=== PATIENT | male | born 1945 | race Caucasian/White ===

== ENCOUNTER 2018-06-16 20:27 | Inpatient (IN) | payer OTHER ==
--- NOTE | 2018-06-16 20:39 | EDPHY ---
H & P Time Seen by Provider: 06/16/18 20:39 HPI/ROS: CHIEF COMPLAINT: Syncope HISTORY OF PRESENT ILLNESS: 72-year-old man was walking his dog just before arrival on the last thing he remembers smelling the wood smoke from his neighbors fireplace. The next thing he remembers he was on the ground looking up at his neighbor who would found him passed out. Brought in by his family. Currently complains only of pain on the right side of his face and right knee. Denies headache or neck pain, weakness or numbness in extremities, chest pain or shortness of breath. He did have nausea and vomited a total of [address] here[address] He is completely amnestic to the event. REVIEW OF SYSTEMS: Eye: no change in vision or double vision ENT: no sore throat or dental injury Cardiac: No chest pain Pulmonary: no cough or SOB Abdomen: No abdominal pain or diarrhea Musculoskeletal: no back pain or neck pain, rate knee pain Skin: Multiple skin abrasions Neuro: no headache Constitutional: no fever : no urinary symptoms A comprehensive 10 point review of systems is otherwise negative aside from elements mentioned in the history of present illness. PAST MEDICAL HISTORY: Includes hypothyroid, anxiety, glaucoma, tonsillectomy. Tetanus up-to-date. Social history: No alcohol, here with his General Appearance: Alert and conversant, cooperative. Eyes: No scleral icterus. Pupils equal reactive extraocular motion intact. He has bruising around his right eyelid and a right subconjunctival hemorrhage. ENT, Mouth: Normal mucous membranes. No dental injury. Abrasions around the right orbit. Respiratory: Normal respiratory effort, breath sounds equal, lungs are clear to auscultation. Cardiovascular: Regular rate and rhythm; 1/6 murmur. Gastrointestinal: Abdomen is soft and non tender. Neurological: Alert, face symmetric, normal motor and sensory in extremities. Skin: Warm and dry, no rashes. Musculoskeletal: No cervical thoracic or lumbar spine tenderness to palpation. His right knee has very mild patellar tenderness without swelling but is stable with normal range of motion and no effusion. Psychiatric: Not agitated. Emergency Department course/MDM: Wound care, noncontrast head CT for head trauma and amnestic to the event. EKG and troponin and battery mechanic for syncope without prodrome. 2108: Right knee x-ray refused by the patient; understands this could result failure or delay in diagnosis of fracture or other internal injury. 2201: Results discussed, admit for syncope with abnormal EKG, age, no prodrome. Smoking Status: Former smoker Constitutional: Initial Vital Signs Temperature (C) 36.3 C 06/16/18 20:31 Heart Rate 76 06/16/18 20:31 Respiratory Rate 20 06/16/18 20:31 Blood Pressure 94/63 L 06/16/18 20:31 O2 Sat (%) 100 06/16/18 20:31 O2 Delivery Mode Room Air Allergies/Adverse Reactions: raw onions Allergy (Uncoded 06/16/18 20:37) Home Medications: Medication Instructions Recorded Levothyroxine 06/16/18 Lexapro 06/16/18 Medical Decision Making - Diagnostics EKG Interpretation: 12-lead EKG interpreted by me; official reading is in computer system. My interpretation is sinus rhythm with right bundle branch block and left posterior fascicular block. Imaging Results: Imaging Impressions Head CT 06/16/18 20:50 Impression: 1. Moderate atrophy. 2. No hemorrhage, mass effect, or definite acute peripheral infarct. 3. Mild nonspecific hypodensities in the white matter of bilateral cerebral hemispheres. Differential diagnosis includes microvascular ischemic disease, post-infectious/post-inflammatory sequela, atypical demyelinating disease, or migraine-related sequela. Small white matter lacunar infarcts may also have this appearance. 4. Soft tissue contusion over the right frontal bone If symptoms worsen, additional imaging may be necessary. Findings discussed with Rehan Arroyo M.D. at 21:46 hour, 06/16/2018. Imaging: Discussed imaging studies w/ rn call center Radiologist Differential Diagnosis: Differential diagnosis considered for syncope including but not limited to vasovagal syncope, arrhythmia, dehydration, and blood loss. Consult/Admit Bed Type: [facility] - Data Points Laboratory Results: Laboratory Results 06/16/18 20:49 06/16/18 20:49 06/16/18 06/16/18 06/16/18 20:53 20:49 20:49 WBC 7.17 10^3/uL 10^3/uL (3.80-9.50) RBC 4.56 10^6/uL 10^6/uL (4.40-6.38) Hgb 15.0 g/dL g/dL (13.7-17.5) Hct 43.6 % % (40.0-51.0) MCV 95.6 fL fL (81.5-99.8) MCH 32.9 pg pg (27.9-34.1) MCHC 34.4 g/dL g/dL (32.4-36.7) RDW 13.0 % % (11.5-15.2) Plt Count 104 10^3/uL L 10^3/uL (150-400) MPV 10.5 fL fL (8.7-11.7) Neut % (Auto) 47.4 % % (39.3-74.2) Lymph % (Auto) 42.0 % % (15.0-45.0) [place] % (Auto) 8.5 % % (4.5-13.0) Eos % (Auto) 1.4 % % (0.6-7.6) Baso % (Auto) 0.4 % % (0.3-1.7) Nucleat RBC Rel Count 0.0 % % (0.0-0.2) Absolute Neuts (auto) 3.40 10^3/uL 10^3/uL (1.70-6.50) Absolute Lymphs (auto) 3.01 10^3/uL H 10^3/uL (1.00-3.00) Absolute Monos (auto) 0.61 10^3/uL 10^3/uL (0.30-0.80) Absolute Eos (auto) 0.10 10^3/uL 10^3/uL (0.03-0.40) Absolute Basos (auto) 0.03 10^3/uL 10^3/uL (0.02-0.10) Absolute Nucleated RBC 0.00 10^3/uL 10^3/uL (0-0.01) Immature Gran % 0.3 % % (0.0-1.1) Immature Gran # 0.02 10^3/uL 10^3/uL (0.00-0.10) Sodium 135 mEq/L mEq/L (135-145) Potassium 3.5 mEq/L mEq/L (3.3-5.0) Chloride 103 mEq/L mEq/L (97-110) Carbon Dioxide 24 mEq/l mEq/l (22-31) Anion Gap 8 mEq/L mEq/L (6-14) BUN 25 mg/dL H mg/dL (7-23) Creatinine 1.4 mg/dL H mg/dL (0.7-1.3) Estimated GFR 50 Glucose 128 mg/dL H mg/dL (70-100) Calcium 9.3 mg/dL mg/dL (8.5-10.4) POC Troponin I 0.00 ng/mL ng/mL (0.00-0.08) Medications Given: Discontinued Medications Sodium Chloride (Ns) 1,000 mls @ 0 mls/hr IV EDNOW ONE; Wide Open PRN Reason: Protocol Stop: 06/16/18 21:30 Last Admin: 06/16/18 21:38 Dose: 1,000 mls Point of Care Test Results: Chemistry 06/16/18 20:53 POC Troponin I 0.00 ng/mL ng/mL (0.00-0.08) Departure - Departure Disposition: [facility] Inpatient Acute Clinical Impression: Subconjunctival hemorrhage of right eye Syncope Qualifiers: Syncope type: unspecified Qualified Code(s): R55 - Syncope and collapse Abrasion of face Qualifiers: Encounter type: initial encounter Qualified Code(s): S00.81XA - Abrasion of other part of head, initial encounter Contusion of right knee Qualifiers: Encounter type: initial encounter Qualified Code(s): S80.01XA - Contusion of right knee, initial encounter Condition: Good Referrals: Perez Britton MD [Primary Care Provider] - As per Instructions
--- NOTE | 2018-06-16 20:51 | CPEKG ---
Test Reason : OPEN Blood Pressure : / mmHG Vent. Rate : 070 BPM Atrial Rate : 070 BPM P-R Int : 189 ms QRS Dur : 126 ms QT Int : 440 ms P-R-T Axes : 070 108 049 degrees QTc Int : 475 ms Sinus rhythm RBBB and LPFB Probable inferior infarct, old Minimal ST elevation, anterior leads Confirmed by Rehan Arroyo ([id number]) on 06/16/2018 8:51:26 PM Referred By: Confirmed By:Rehan Arroyo
[2018-06-16 21:03] LABS: PLATELET COUNT 104 10^3/uL (150-400)
[2018-06-16] MEDS ORDERED: NS 1,000 ML IV ONE (21:29)
[2018-06-16] MEDS ORDERED: ONDANSETRON 4 MG/2 ML VIAL IVP PRN (22:08)
[2018-06-16] MEDS ORDERED: ONDANSETRON DISINTEGRATING 4 MG TAB PO PRN (22:08)
[2018-06-16] MEDS ORDERED: ACETAMINOPHEN 325 MG TAB PO PRN (22:08)
--- NOTE | 2018-06-17 00:48 | PDGENHP ---
History and Physical - Chief Complaint Syncope - History of Present Illness 72 yo M w/ hx of hypothyroid presents after syncope. He was in his usual state of health until this evening when he suffered a syncopal event while walking his dogs. He was walking without issue when he remembers an intense smell of smoke. Shortly after that he lost consciousness. His neighbor found him and helped him inside. At that point he was brought to the ED for evaluation. The patient denies prior history of syncope. He tells me his neighbors frequently burn wood so the smell was not unexpected but it was very intense. He denies chest pain prior to or after the event. At the time of my evaluation he denies complaints. He does have a laceration on his R forehead related to the fall. In the ED his CTH is unremarkable but ECG reveals bifascicular block. He is being admitted for observation and further work-up. Case discussed with ED physician Dr. Arroyo; records reviewed and summarized above. History Information - Allergies/Home Medication List Allergies/Adverse Reactions: raw onions Allergy (Uncoded 06/16/18 20:37) Home Medications: Levothyroxine 06/16/18 [Last Taken Unknown] Lexapro 06/16/18 [Last Taken Unknown] Tamsulosin HCl 06/16/18 [Last Taken Unknown] I have personally reviewed and updated: family history, medical history - Past Medical History Additional medical history: Hypothyroid - Surgical History Reports: no pertinent surgical hx - Family History Positive for: CAD Additional family history: Denies family hx of seizures - Social History Smoking Status: Former smoker Review of Systems Review of Systems: ROS: 10pt was reviewed & negative except for what was stated in HPI & below Physical Exam Physical Exam: Temp Pulse Resp BP Pulse Ox 36.6 C 66 14 118/59 L 96 06/17/18 00:05 06/17/18 00:20 06/17/18 00:05 06/17/18 00:20 06/17/18 00:05 Constitutional: no apparent distress, appears nourished Eyes: PERRL, other (Scleral hemorrhage R eye) Ears, Nose, Mouth, Throat: moist mucous membranes, no oral mucosal ulcers Cardiovascular: regular rate and rhythym, systolic murmur (2/6 systolic murmur upper sternal border) Respiratory: no respiratory distress, clear to auscultation Gastrointestinal: normoactive bowel sounds, soft, non-tender abdomen Skin: warm, other (R frontal laceration) Musculoskeletal: full muscle strength, no muscle tenderness Neurologic: AAOx3, CN II-XII Intact Psychiatric: interacting appropriately, not anxious Lab Data & Imaging Review 06/16/18 20:49 06/16/18 20:49 WBC 7.17 10^3/uL (3.80-9.50) 06/16/18 20:49 RBC 4.56 10^6/uL (4.40-6.38) 06/16/18 20:49 Hgb 15.0 g/dL (13.7-17.5) 06/16/18 20:49 Hct 43.6 % (40.0-51.0) 06/16/18 20:49 MCV 95.6 fL (81.5-99.8) 06/16/18 20:49 MCH 32.9 pg (27.9-34.1) 06/16/18 20:49 MCHC 34.4 g/dL (32.4-36.7) 06/16/18 20:49 RDW 13.0 % (11.5-15.2) 06/16/18 20:49 Plt Count 104 10^3/uL (150-400) L 06/16/18 20:49 MPV 10.5 fL (8.7-11.7) 06/16/18 20:49 Neut % (Auto) 47.4 % (39.3-74.2) 06/16/18 20:49 Lymph % (Auto) 42.0 % (15.0-45.0) 06/16/18 20:49 [place] % (Auto) 8.5 % (4.5-13.0) 06/16/18 20:49 Eos % (Auto) 1.4 % (0.6-7.6) 06/16/18 20:49 Baso % (Auto) 0.4 % (0.3-1.7) 06/16/18 20:49 Nucleat RBC Rel Count 0.0 % (0.0-0.2) 06/16/18 20:49 Absolute Neuts (auto) 3.40 10^3/uL (1.70-6.50) 06/16/18 20:49 Absolute Lymphs (auto) 3.01 10^3/uL (1.00-3.00) H 06/16/18 20:49 Absolute Monos (auto) 0.61 10^3/uL (0.30-0.80) 06/16/18 20:49 Absolute Eos (auto) 0.10 10^3/uL (0.03-0.40) 06/16/18 20:49 Absolute Basos (auto) 0.03 10^3/uL (0.02-0.10) 06/16/18 20:49 Absolute Nucleated RBC 0.00 10^3/uL (0-0.01) 06/16/18 20:49 Immature Gran % 0.3 % (0.0-1.1) 06/16/18 20:49 Immature Gran # 0.02 10^3/uL (0.00-0.10) 06/16/18 20:49 Sodium 135 mEq/L (135-145) 06/16/18 20:49 Potassium 3.5 mEq/L (3.3-5.0) 06/16/18 20:49 Chloride 103 mEq/L (97-110) 06/16/18 20:49 Carbon Dioxide 24 mEq/l (22-31) 06/16/18 20:49 Anion Gap 8 mEq/L (6-14) 06/16/18 20:49 BUN 25 mg/dL (7-23) H 06/16/18 20:49 Creatinine 1.4 mg/dL (0.7-1.3) H 06/16/18 20:49 Estimated GFR 50 06/16/18 20:49 Glucose 128 mg/dL (70-100) H 06/16/18 20:49 Calcium 9.3 mg/dL (8.5-10.4) 06/16/18 20:49 POC Troponin I 0.00 ng/mL (0.00-0.08) 06/16/18 20:53 Imaging Review: Imaging Impressions Head CT 06/16/18 20:50 Impression: 1. Moderate atrophy. 2. No hemorrhage, mass effect, or definite acute peripheral infarct. 3. Mild nonspecific hypodensities in the white matter of bilateral cerebral hemispheres. Differential diagnosis includes microvascular ischemic disease, post-infectious/post-inflammatory sequela, atypical demyelinating disease, or migraine-related sequela. Small white matter lacunar infarcts may also have this appearance. 4. Soft tissue contusion over the right frontal bone If symptoms worsen, additional imaging may be necessary. Findings discussed with Rehan Arroyo M.D. at 21:46 hour, 06/16/2018. Visualized and Interpreted EKG results: Yes EKG Interpretation: Positive for: normal sinsus rhythm, other (Bifascicular block) Assessment & Plan Assessment: 72 yo M w/ hx of hypothyroid presents after syncopal event. Plan: 1. Syncope - With intense smell of burning wood prior to syncopal event; this is possibly consistent with a seizure. However, bifascicular block on ECG ( personally reviewed/interpreted) and systolic murmur on exam merit cardiac evaluation as well. CTH in ED without acute abnormality. - Monitor on telemetry, trend cardiac enzymes - TTE ordered for cardiac evaluation - Monitor for seizure activity; may need MRI if recurrent. 2. CKD, stage III - Serum creatinine near baseline. - Avoid nephrotoxic agents - Monitor BMP 3. Thrombocytopenia - Unclear etiology, this appears chronic per review of labs. - Monitor CBC 4. Hypothyroid - Continue LTX, check TSH. Diet - Regular Code - Full Ppx - LMWH Dispo - Admit under observation status
[2018-06-17 05:58] LABS: PLATELET COUNT 94 10^3/uL (150-400)
[2018-06-17] MEDS: ENOXAPARIN 40 MG/0.4 ML SYR SC SCH (10:55)
--- NOTE | 2018-06-17 12:05 | ECHO ---
[email or web address] [address] [address] Main: [phone] Fax: Transthoracic Echocardiogram Name: KRZYSZTOF FAGAN MR#: [id number] Study Date: 06/17/2018 Study Time: 09:07 AM Date of : 1945 Age: 72 year(s) Height: ( ) Weight: ( ) BSA: Gender: Male Examination: Echo Indication: Cardiac: syncope, abnormal ecg Image Quality: Adequate Contrast: Requested by: Dion Tejeda BP: 112 mmHg/57 mmHg Heart Rate: Rhythm: Indication: Cardiac: syncope, abnormal ecg Procedure Staff Claims Specialist: Radha Newamn [facility] Reading Physician: Krzysztof Panda MD Requesting Provider: Conclusions: Normal size left ventricle. Moderate concentric LV hypertrophy. Normal global systolic LV function. EF is 64 %. No regional wall motion abnormality. Normal size right ventricle. The mitral valve is normal in appearance and function. Trivial mitral valve regurgitation. Cannot rule out bicuspid aortic valve with raphe. Severe aortic valve calcification is present. There is no aortic valve regurgitation. The tricuspid valve is normal in appearance and function. Trivial tricuspid valve regurgitation. Pulmonary artery pressure is not obtained due to inadequate TR jet. Trivial to mild pulmonic valve regurgitation. Normal size ascending aorta measuring 3.1 cm. Normal size and course of the IVC. No pericardial effusion. Measurements: Chambers Valvular Assessment AV/MV Valvular Assessment TV/PV Normal Normal Normal Name Value Range Name Value Range Name Value Range Ao Sherry (MM): 3.2 cm (2.2 cm-3.7 AV Vmax: 4.65 m/s (1 m/s-1.7 PV Vmax: 0.79 m/s (0.6 m/s-0.9 cm) m/s) m/s) IVSd (2D): 1.2 cm (0.6 cm-1.1 AV maxP mmHg ( - ) PV PGmax: 3 mmHg ( - ) cm) AV meanP mmHg ( - ) LVDd (2D): 3.9 cm (4.2 cm-5.9 RAYNA (VTI): 0.8 cm ( - ) cm) MV E Vmax: 1.01 m/s ( - ) Patient: KRZYSZTOF FAGAN Study Date: 06/17/2018 Page 1 of 2 09:07 AM LVDs (2D): 2.3 cm (2.1 cm-4 MV A Vmax: 1.20 m/s ( - ) cm) MV E/A: 0.84 ( - ) LVPWd (2D): 1.2 cm (0.6 cm-1 cm) LVOTd 2.1 cm 2.1 cm mm LVEF (BP): 64 % (>=55 %) RVDd(2D): 3.4 cm (1.9 cm-3.8 cmmm) Continued Measurements: Chambers Valvular Assessment AV/MV Name Value Name Value LADs Lon.0 cm MV DecTime: 232 m/s LA Area: 17.0 cm2 MV E' Septal: 0.07 m/s LA Volume: 52 ml MV E/E' Septal: 15.50 TAPSE: 2.8 cm MV E/E' Lateral: 11.40 RA Area: 14.7 cm2 Additional Vessels Name Value Ao Ascendin.1 cm Findings: Left Ventricle: Normal size left ventricle. Moderate concentric LV hypertrophy. Normal global systolic LV function. EF is 64 %. No regional wall motion abnormality. LV diastolic dysfunction is indeterminate. Right Ventricle: Normal size right ventricle. Normal RV function. Left Atrium: The left atrium is normal in size. LA index 27.8 ml/m2. Right Atrium: The right atrium is normal in size. Mitral Valve: The mitral valve is normal in appearance and function. Trivial mitral valve regurgitation. No mitral stenosis is present. Aortic Valve: Cannot rule out bicuspid aortic valve with raphe. Severe aortic valve calcification is present. There is no aortic valve regurgitation. Mean aortic valve gradient 51. Severe calcific aortic valve stenosis. NDSI = .22 Tricuspid Valve: The tricuspid valve is normal in appearance and function. Trivial tricuspid valve regurgitation. Pulmonary artery pressure is not obtained due to inadequate TR jet. Pulmonic Valve: The pulmonic valve is normal in appearance and function. Trivial to mild pulmonic valve regurgitation. Aorta: Normal size aortic root measuring 3.2 cm. Normal size ascending aorta measuring 3.1 cm. IVC: Normal size and course of the IVC. Pericardium: No pericardial effusion. (No Signature Object) Patient: KRZYSZTOF FAGAN Study Date: 06/17/2018 Page 2 of 2 09:07 AM [id number]
[2018-06-17] MEDS: LEVOTHYROXINE 50 MCG TAB PO SCH (13:18)
[2018-06-17] MEDS: CITALOPRAM 20 MG TAB PO SCH (13:19)
--- NOTE | 2018-06-17 13:31 | HOSPPROG ---
Hospitalist Progress Note Assessment/Plan: 72 yo M w syncope 2/ critical : CT surgery consult and preop eval. cath in AM syncope: this is almost certainly due to his elevated troponin: likely demand cath prior to surgery repeat now conduction system disease: change to inpatient dispo: change to inpatient Subjective: case d/w dr montoya. no sheri/tachy arrhythmias on tele (interp by me) Objective: Vital Signs Temp Pulse Resp BP Pulse Ox 37.7 C 56 L 16 103/58 L 96 06/17/18 12:00 06/17/18 12:00 06/17/18 12:00 06/17/18 12:00 06/17/18 05:33 Laboratory Results 06/17/18 05:29 06/17/18 05:29 06/16/18 06/17/18 06/18/18 05:59 05:59 05:59 Intake Total 1050 Balance 1050 - Physical Exam Constitutional: no apparent distress, appears nourished Eyes: PERRL, anicteric sclera Ears, Nose, Mouth, Throat: moist mucous membranes, hearing normal Cardiovascular: regular rate and rhythym, systolic murmur Respiratory: no respiratory distress, no rales or rhonchi Gastrointestinal: normoactive bowel sounds, soft, non-tender abdomen Genitourinary: No hebert in urethra Skin: warm, normal color Musculoskeletal: full muscle strength, no muscle tenderness Neurologic: AAOx3, sensation intact bilaterally Psychiatric: interacting appropriately ICD10 Worksheet Patient Problems: Problems Problem Status Onset Abrasion of face Acute Contusion of right knee Acute Subconjunctival hemorrhage of right eye Acute Syncope Acute
--- NOTE | 2018-06-17 13:43 | PDCARCONS ---
Cardiology Consult Reason for Consult: Syncope Chief Complaint: Patient passed out while walking dog Requesting Physician: hospitalist team History of Present Illness: Patient is a 72 y/o male with history of hypothyroidism, anxiety, but no HTN, HLP, CAD, or DM, who presented to [facility] ER after syncope while walking dog. Patient without a prodrome, and simply found himself on the ground. Uncertain duration for the event. No dizziness or lightheadedness preceded this event, but in review of outpatient notes, dizziness has been noted for several years. PCP office notes with dizziness noted. Manipulation of medical therapy for history of anxiety has been documented. No chest pains or pressure have been noted. No PND or orthopnea. Compliance (at present) with prescribed medical therapy has been good. Patient walks the dog several times per week and has not had any limitations. Patient also reports knowledge of "murmur" for sometime, but no formal work up on the symptom. Remainder of 12 point review of systems was unremarkable History Information - Allergies/Home Medication List Allergies/Adverse Reactions: raw onions Allergy (Uncoded 06/16/18 20:37) Home Medications: Citalopram [CeleXA] 20 mg PO DAILY 06/16/18 [Last Taken 06/16/18] Levothyroxine [Synthroid 50 mcg (*)] 50 mcg PO DAILY06 06/16/18 [Last Taken 09/29] Tamsulosin HCl [Flomax 0.4 MG (*)] 0.4 mg PO BID 06/16/18 [Last Taken 06/16/18 09:00] Timolol 0.5% [TIMOPTIC 0.5% (*)] 1 drops EACHEYE DAILY 06/17/18 [Last Taken 09/29] I have personally reviewed and updated: family history, medical history, social history, surgical history Past Medical History: - Surgical History Reports: hernia repair - Family History Positive for: non-pertinent - Social History Smoking Status: Former smoker Alcohol Use: Sober Drug Use: None Cardiac History - Cardiac History Cardiac Risk Factors: age > 65, male Timing/Duration: Minutes Severity: severe Severity Scale: 9 Activities at Onset: activity Associated Symptoms: syncope Physical Exam Physical Exam: Temp Pulse Resp BP Pulse Ox 37.7 C 56 L 16 103/58 L 96 06/17/18 12:00 06/17/18 12:00 12/04/18 12:00 06/17/18 12:00 06/17/18 05:33 Constitutional: no apparent distress, appears nourished, not in pain Eyes: PERRL, EOMI Ears, Nose, Mouth, Throat: moist mucous membranes, hearing normal, ears appear normal Cardiovascular: regular rate and rhythym, systolic murmur, pulses symmetric bilaterally, No JVD Peripheral Pulses: 2+: dorsalis-pedis (R), dorsalis-pedis (L) Respiratory: no respiratory distress, no rales or rhonchi, clear to auscultation Gastrointestinal: normoactive bowel sounds Skin: warm, normal color Musculoskeletal: full muscle strength, no muscle tenderness, normal joint ROM Neurologic: AAOx3, sensation intact bilaterally, CN II-XII Intact Psychiatric: interacting appropriately, not anxious, not encephalopathic Lab and Imaging 06/17/18 05:29 06/17/18 05:29 WBC 7.85 10^3/uL (3.80-9.50) 06/17/18 05:29 RBC 4.34 10^6/uL (4.40-6.38) L 06/17/18 05:29 Hgb 14.1 g/dL (13.7-17.5) 06/17/18 05:29 Hct 41.0 % (40.0-51.0) 06/17/18 05:29 MCV 94.5 fL (81.5-99.8) 06/17/18 05:29 MCH 32.5 pg (27.9-34.1) 06/17/18 05:29 MCHC 34.4 g/dL (32.4-36.7) 06/17/18 05:29 RDW 13.2 % (11.5-15.2) 06/17/18 05:29 Plt Count 94 10^3/uL (150-400) L 06/17/18 05:29 MPV 10.4 fL (8.7-11.7) 06/17/18 05:29 Neut % (Auto) 71.0 % (39.3-74.2) 06/17/18 05:29 Lymph % (Auto) 18.6 % (15.0-45.0) 06/17/18 05:29 [place] % (Auto) 9.4 % (4.5-13.0) 06/17/18 05:29 Eos % (Auto) 0.4 % (0.6-7.6) L 06/17/18 05:29 Baso % (Auto) 0.3 % (0.3-1.7) 06/17/18 05:29 Nucleat RBC Rel Count 0.0 % (0.0-0.2) 06/17/18 05:29 Absolute Neuts (auto) 5.58 10^3/uL (1.70-6.50) 06/17/18 05:29 Absolute Lymphs (auto) 1.46 10^3/uL (1.00-3.00) 06/17/18 05:29 Absolute Monos (auto) 0.74 10^3/uL (0.30-0.80) 06/17/18 05:29 Absolute Eos (auto) 0.03 10^3/uL (0.03-0.40) 06/17/18 05:29 Absolute Basos (auto) 0.02 10^3/uL (0.02-0.10) 06/17/18 05:29 Absolute Nucleated RBC 0.00 10^3/uL (0-0.01) 06/17/18 05:29 Immature Gran % 0.3 % (0.0-1.1) 06/17/18 05:29 Immature Gran # 0.02 10^3/uL (0.00-0.10) 06/17/18 05:29 Sodium 140 mEq/L (135-145) 06/17/18 05:29 Potassium 4.4 mEq/L (3.3-5.0) 06/17/18 05:29 Chloride 109 mEq/L (97-110) 06/17/18 05:29 Carbon Dioxide 27 mEq/l (22-31) 06/17/18 05:29 Anion Gap 4 mEq/L (6-14) L 06/17/18 05:29 BUN 21 mg/dL (7-23) 06/17/18 05:29 Creatinine 1.2 mg/dL (0.7-1.3) 06/17/18 05:29 Estimated GFR 59 06/17/18 05:29 Glucose 110 mg/dL (70-100) H 06/17/18 05:29 Calcium 8.4 mg/dL (8.5-10.4) L 06/17/18 05:29 Phosphorus 3.7 mg/dL (2.5-4.5) 06/17/18 05:29 Magnesium 2.4 mg/dL (1.6-2.3) H 06/17/18 05:29 POC Troponin I 0.00 ng/mL (0.00-0.08) 06/16/18 20:53 Troponin I 0.182 ng/mL (0.000-0.034) H 06/17/18 05:29 TSH 1.400 uIU/mL (0.465-4.680) 06/17/18 05:29 Visualized and Interpreted EKG results: Yes EKG Interpretation: Positive for: normal sinsus rhythm, right bundle branch block EKG additional interpertation: LPFB. Possible old inferior myocardial infarction with Q waves present Telemetry: normal sinus rhythm Echocardiogram: normal LVEF. Critical with RAYNA to 0.8 cm^2, mean gradient of 51 mm Hg (peak to 86 mm Hg) with peak velocity of 4.6 m/s A/P Assessment: Patient is a 72 y/o male with critical by echocardiography and a recent episode of syncope. At present, the patient is without symptoms. Given the degree of noted, and the syncopal event, plan for surgical consultation today. Plan: (1) Left heart catheterization today (2) Would consider addition of statins (would have assessment of FLP and LFTs) (3) Hold on ASA therapy given pending (4) Will follow patient over hospital stay
[2018-06-17] MEDS ORDERED: diphenhydrAMINE 25 MG CAP PO ONE ×2 (14:10→14:43)
[2018-06-17] MEDS ORDERED: FAMOTIDINE 20 MG TAB PO ONE (14:10)
[2018-06-17] MEDS ORDERED: TEMAZEPAM 15 MG CAP PO PRN (14:10)
[2018-06-17] MEDS ORDERED: ASPIRIN EC 325 MG TAB PO ONE ×2 (14:10→14:43)
[2018-06-17] MEDS ORDERED: NITROGLYCERIN 0.4 MG BTL SL PRN (14:10)
[2018-06-17] MEDS ORDERED: DIAZEPAM 5 MG TAB PO ONE (14:10)
--- NOTE | 2018-06-17 14:10 | PDPROPOC ---
Sedation Plan of Care Sedation Plan of Care: vital signs stable, mental status noted, patient educated of risks, benefits, alternatives, patient can tolerate sedation ASA Classification: ASA 2 Planned drugs: fentanyl, midazolam Mallampati Score: Class 2 Mallampati Reference Image: Patient passed 3-3-2 rule?: Yes
[2018-06-17] MEDS ORDERED: NS 1,000 ML IV SCH (14:15)
[2018-06-17] MEDS ORDERED: FAMOTIDINE 20 MG TAB ONE (14:43)
[2018-06-17] MEDS ORDERED: DIAZEPAM 5 MG TAB ONE (14:43)
[2018-06-17] MEDS ORDERED: fentaNYL 100 MCG/2 ML INJ ONE (14:47)
[2018-06-17] MEDS ORDERED: LIDOCAINE 1% 300 MG/30 ML SDV ONE (14:47)
[2018-06-17] MEDS ORDERED: IOPAMIDOL (ISOVUE-370) 150 ML BTL IV ONE (14:47)
[2018-06-17] MEDS ORDERED: MIDAZOLAM 2 MG/2 ML VIAL ONE (14:47)
[2018-06-17] MEDS ORDERED: ADENOSINE 90 MG/30 ML VIAL IV ONE (14:48)
--- NOTE | 2018-06-17 15:19 | PDMN ---
Medical Necessity Medical necessity: MCG: M340 syncope-syncope while alking his dog, without prodrome, also with dizziness, 2/2 critical , cardiac cath in am, elevated trop, EKG show NSR, RBBB, LPFB poss old inferior FL with Q waves present. PMHx "murmur" , hypothyroid status changed to INPT 06/17 for ongoing med nec care- cardiac cath pend.
--- NOTE | 2018-06-17 15:38 | PDDXCAT ---
Diagnostic Cath Note - . Date: 06/17/18 Machine Assembler For Puller Over: Amarilys Indication: other (critical with pending need for surgical intervention) - Procedure Access: right groin Procedure: left heart catheterization, coronary angiography - Materials Left Heart Cath size: 6F Left Heart Cath materials: JL4.0, JR4.0 - Findings-Left Heart Catheterization LM: short vessel with bifurcation into the LAD and LCX. No luminal irregularities were noted. LAD: The LAD is a medium to large diamter vessel wtih three smallish diagonals ( D1, D2, and D3). No luminal irregularities were noted. LCX: The LCX is the dominant vessel with supply into the region of the PDA. there is a small OM1 and OM2 with a large OM3. No luminal irregularities were noted to the LCX system. RCA: Small, diminuative vessel. No luminal irregularities were noted. EDP: not performed LVEF: not performed Wall motion: not performed Complications: none Estimated blood loss: <50ml Closure method: Angioseal Assessment: Patient is a 72 y/o male with critical (RAYNA to 0.8 cm^2, mean gradient of 57 mm Hg, and >4.0 m/s) without appreciable CAD noted by angiography. No LV gram was performed given the critical noted. Plan: CT surgery to discuss surgical options to the aortic valve. No CAD was noted on this invasive study. Intervention: none Patient Problems: Problems Problem Status Onset Abrasion of face Acute Contusion of right knee Acute Subconjunctival hemorrhage of right eye Acute Syncope Acute
--- NOTE | 2018-06-17 15:48 | ASMTCMCOM ---
CM Note CM Note Notes: Pt found down when walking the dog due to a syncopal event. Pt found to have critical aortic stenosis requiring seed laboratory assistant procedure today and cardiac surgery consult. Pt lives with Sakshi in [place], and per RN Sakshi is quite shaken by turn of events. Pt nor in room when CM consulted. Discharge needs TBD. CM to follow. D/c Plan: TBD Date Signed: 06/17/2018 03:35 PM Electronically Signed By:Anabella Reza
[2018-06-17] MEDS: TIMOLOL 0.5% 15 ML OPHT.BTL EACHEYE SCH (15:59)
[2018-06-17] MEDS ORDERED: ATROPINE SULFATE 1 MG/10 ML SYR IVP PRN (16:47)
[2018-06-17] MEDS: TAMSULOSIN HCL 0.4 MG CAP PO SCH (20:51)
[2018-06-18] MEDS: LEVOTHYROXINE 50 MCG TAB PO SCH (06:24)
[2018-06-18] MEDS: CITALOPRAM 20 MG TAB PO SCH (09:46)
[2018-06-18] MEDS: TAMSULOSIN HCL 0.4 MG CAP PO SCH ×2 (09:46→20:30)
--- NOTE | 2018-06-18 10:56 | PDCARPN ---
Cardiology Progress Note Chief Complaint: Syncope Assessment/Plan: Assessment: Patient is a 72 y/o male with newly diagnosed critical aortic stenosis, who presented to [facility] after syncopal event while walking dog. Initial work up with CT (no skull fracture or ICB noted) and echocardiography (which noted critical with velocities >4 m/s, mean gradient of >40 mm Hg, and RAYNA estimated to be < 1.0 cm^2). Angiography yesterday without critical CAD noted. No attempt to cross aortic valve was undertaken. No events overnight. No active cardiovascular complains (no chest pains or pressure, no PND or orthopnea, no active dizziness or lightheadedness). CT surgery consultation rendered yesterday. Plan: (1) Aortic replacement scheduled for tomorrow (time is pending) (2) Cardiology will follow patient as needed Subjective: No cardiovascular complaints Reviewed/Discussed With: family, hospitalist Objective: Vital Signs (8 Hrs) Temp Pulse Resp BP Pulse Ox 06/18/18 07:35 37.2 C 76 14 115/64 90 L 06/18/18 03:46 36.8 C 63 12 99/63 L 91 L Intake/Output (24 Hrs) 06/17/18 06/18/18 06/19/18 05:59 05:59 05:59 Intake Total 620 Output Total 360 Balance 260 Intake: Oral (ml) 120 IV Intake (ml) 500 Output: Urine (ml) 360 Urinal 360 Other: Number of Voids Toilet 1 Number of Stools Toilet 1 Result Diagrams: 06/17/18 05:29 06/17/18 05:29 Cardiac Labs: Cardiac Lab Results (72 Hrs) 06/17/18 13:55 Troponin I 0.112 H Telemetry: Normal sinus rhythm Echocardiogram: As above. - Physical Exam Constitutional: WDWN, healthy appearing, no apparent distress Eyes: PERRL, EOMI Ears, Nose, Mouth, Throat: moist mucous membranes Cardiovascular: regular rate and rhythm, systolic murmur, pulses symmetric bilat , No jugular vein distention Peripheral Pulses: 2+: dorsalis-pedis (R), dorsalis-pedis (L) Respiratory: clear to auscultate bilat, no crackles, no wheezes Gastrointestinal: normoactive bowel sounds Skin: no edema, abrasion, erythema Musculoskeletal: no muscular tenderness Neurologic: AAOx3, CN II-XII grossly intact Psychiatric: cooperative, interactive, following commands ICD10 Worksheet Patient Problems: Problems Problem Status Onset Abrasion of face Acute Contusion of right knee Acute Subconjunctival hemorrhage of right eye Acute Syncope Acute
[2018-06-18] MEDS: ENOXAPARIN 40 MG/0.4 ML SYR SC SCH (11:42)
--- NOTE | 2018-06-18 15:28 | ASMTCMCOM ---
CM Note CM Note Notes: 06/18/2018 Case Management Note Discussed w/RN. Pt to have open heart tomorrow. Discharge needs are unclear. Case Management d/c poc: to be determined. Case Management to follow. Date Signed: 06/18/2018 03:27 PM Electronically Signed By:Rivka Light RN
--- NOTE | 2018-06-18 16:59 | HOSPPROG ---
Hospitalist Progress Note Assessment/Plan: 72 yo M w syncope 2/2 critical : -Plan for AV replacement tomorrow -Cath unremarkable syncope: due to elevated troponin: likely demand cath prior to surgery unremarkable dispo: continue inpatient. Surgery tomorrow Subjective: will have surgery tomorrow. no cp or sob. no n/v Objective: Vital Signs Temp Pulse Resp BP Pulse Ox 36.9 C 71 18 123/79 H 92 06/18/18 15:54 06/18/18 15:54 06/18/18 15:54 06/18/18 15:54 06/18/18 15:54 06/17/18 06/18/18 06/19/18 05:59 05:59 05:59 Intake Total 620 Output Total 360 Balance 260 - Physical Exam Constitutional: no apparent distress Eyes: PERRL Ears, Nose, Mouth, Throat: moist mucous membranes, hearing normal Cardiovascular: regular rate and rhythym, No edema Respiratory: no respiratory distress, no rales or rhonchi, clear to auscultation Gastrointestinal: normoactive bowel sounds Skin: warm Neurologic: AAOx3 Psychiatric: interacting appropriately, not anxious, not encephalopathic Lymph, Heme, Immunologic: No petechiae ICD10 Worksheet Patient Problems: Problems Problem Status Onset Abrasion of face Acute Contusion of right knee Acute Subconjunctival hemorrhage of right eye Acute Syncope Acute
[2018-06-18] MEDS: TIMOLOL 0.5% 15 ML OPHT.BTL EACHEYE SCH (17:08)
[2018-06-18] MEDS ORDERED: CHLORHEXIDINE GLUC HIBICLENS 118 ML BTL TP SCH (21:00)
[2018-06-18] MEDS: MUPIROCIN 2% 22 GM OINT NS SCH (21:57)
--- NOTE | 2018-06-18 22:11 | GCON ---
DATE OF CONSULTATION: 06/18/2018 REFERRING PHYSICIAN: Dr. Panda The patient was seen at the request of Dr. Panda with the patient's permission. IMPRESSION: 1. Critical aortic stenosis with syncope and facial trauma. 2. Chronic kidney disease stage 3. 3. Thrombocytopenia, etiology unclear, appears chronic after reviewing the labs. 4. Hypothyroidism. RECOMMENDATIONS: This gentleman should undergo aortic valve replacement on this admission given his profound facial trauma with syncope and high velocities and gradients. The patient and his are a menable. They were advised that he had a less than 1% mortality, that we would use a bioprosthesis w hich should not require anticoagulation intermediate and always could have a subsequent repeat valve pro cedure as a TAVR if in fact this valve ever deteriorated during his lifetime. His coronaries were no rmal. We will attempt to do this through a minimally invasive incision. HISTORY: This is a pleasant 72-year-old gentleman who was out walking his dog and without prodrome s yncoped and fell face first into the sidewalk. He was brought to the ER and underwent head CT and ev aluation. He was found to have critical aortic stenosis unbeknownst to him. MEDICAL HISTORY: Hypothyroidism and BPH. SOCIAL: He is retired and former smoker. He is accompanied by his , quite pleasant, in no appar ent distress. FAMILY HISTORY: Noncontributory. REVIEW OF SYSTEMS: Unremarkable except for chief complaint. PHYSICAL EXAMINATION: GENERAL: He is a slender, elderly gentleman lying supine in bed with marked e cchymoses across his right orbit and face. HEENT: Normocephalic. PERRLA. EOMI. NECK: Without br uit, adenopathy or thyromegaly. HEART: Rate is regular. S3 or S4. He has a loud systolic murmur a cross he precordium. CHEST: Lungs are clear. ABDOMEN: Soft, nontender. Bowel sounds are active. RECTAL AND GENITAL: Exams were deferred. EXTREMITIES: Pedal pulses are 2+ and symmetrical. He foster s no edema. No varicosities. DIAGNOSTIC DATA: Please see cath report for details. /[id number]/MODL
[2018-06-19] MEDS: LEVOTHYROXINE 50 MCG TAB PO SCH (05:23)
[2018-06-19] MEDS ORDERED: niCARdipine/NACL 200 ML IV ONE (06:00)
[2018-06-19] MEDS ORDERED: CARDIOPLEGIC SOLUTION 1,052.8 ML PF ONE (06:00)
[2018-06-19] MEDS ORDERED: INSULIN REGULAR HUMAN 100 UNIT in NS 100 ML IV ONE (06:00)
[2018-06-19] MEDS ORDERED: NOREPINEPHRINE BITARTRATE 16 MG in NS 250 ML IV ONE (06:00)
[2018-06-19] MEDS ORDERED: AMINOCAPROIC ACID 5 GM/20 ML VIAL IV ONE (06:00)
[2018-06-19] MEDS ORDERED: ceFAZolin 2 GM/DEXTROSE 100 ML IV ONE (06:00)
[2018-06-19] MEDS ORDERED: MANNITOL 25% 12.5 GM/50 ML VIAL IVP ONE (06:00)
[2018-06-19] MEDS ORDERED: PHENYLEPHRINE HCL 50 MG in NS 250 ML IV ONE (06:00)
[2018-06-19] MEDS ORDERED: CITRATE DEXTROSE SOLN 500 ML BAG MISC ONE (06:00)
[2018-06-19] MEDS ORDERED: LIDOCAINE 1% 2 ML INJ ID PRN (06:13)
[2018-06-19] MEDS ORDERED: LR 1,000 ML IV ONE (06:13)
[2018-06-19] MEDS: MUPIROCIN 2% 22 GM OINT NS SCH ×2 (06:36→21:32)
[2018-06-19] MEDS ORDERED: CALCIUM CHLORIDE 1 GM/10 ML INJ ONE (06:47)
[2018-06-19] MEDS ORDERED: PROTAMINE SULFATE 50 MG/5 ML VIAL IVP ONE (06:47)
[2018-06-19] MEDS ORDERED: SODIUM BICARBONATE 50 MEQ/50 ML SYR ONE (06:47)
[2018-06-19] MEDS ORDERED: ALBUMIN 5% 250 ML BOTTLE IV ONE ×4 (06:47→16:29)
[2018-06-19] MEDS ORDERED: DOPamine/DEXTROSE 400 MG/250 ML BAG IV ONE (06:48)
[2018-06-19] MEDS ORDERED: MILRINONE/DEXTROSE/100 ML BAG IV ONE (06:48)
[2018-06-19] MEDS ORDERED: NA BICARBONATE 50 MEQ/50 ML VIAL ONE (06:48)
[2018-06-19] MEDS ORDERED: LIDOCAINE 2% 100 MG/5 ML SYR ONE (06:48)
[2018-06-19] MEDS ORDERED: HEPARIN 10,000 UNIT/10 ML MDV (1,000 UNIT/ML) ONE (06:48)
[2018-06-19] MEDS ORDERED: ceFAZolin 1 GM VIAL ONE (06:49)
[2018-06-19] MEDS ORDERED: methylPREDNISolone SOD SUCC 1 GM/8 ML VIAL ONE (06:49)
[2018-06-19] MEDS ORDERED: NITROGLYCERIN/D5W 50 MG/250 ML BOTTLE IV ONE (06:49)
[2018-06-19] MEDS ORDERED: niCARdipine/NACL/200 ML BAG IV ONE (06:49)
[2018-06-19] MEDS ORDERED: CITRATE DEXTROSE SOLN 500 ML BAG ONE (06:49)
[2018-06-19] MEDS ORDERED: ADENOSINE 6 MG/2 ML VIAL ONE (06:49)
[2018-06-19] MEDS ORDERED: AMIODARONE HCL 150 MG/3 ML VIAL ONE (06:49)
[2018-06-19] MEDS ORDERED: MAGNESIUM SULFATE 1 GM/2 ML VIAL ONE (06:49)
[2018-06-19] MEDS ORDERED: MINERAL OIL 10 ML VIAL ONE (07:01)
--- NOTE | 2018-06-19 07:02 | PDANEPAE ---
ANE History of Present Illness 72 yo for AVR ANE Past Medical History - Cardiovascular History Hx Hypertension: No Hx Arrhythmias: No Hx Chest Pain: No Hx Coronary Artery / Peripheral Vascular Disease: No Hx CHF / Valvular Disease: Yes Hx Palpitations: No - Pulmonary History Hx COPD: No Hx Asthma/Reactive Airway Disease: No Hx Oxygen in Use at Home: No Hx Sleep Apnea: No Sleep Apnea Screening Result - Last Documented: Negative - Endocrine History Hx Diabetes: No ANE Review of Systems Review of Systems: - Exercise capacity METS (RN): 4 METS ANE Patient History - Allergies Allergies/Adverse Reactions: raw onions Allergy (Uncoded 06/16/18 20:37) - Home Medications Home medications: home medication list seen and reviewed Home Medications: Citalopram [CeleXA] 20 mg PO DAILY 06/16/18 [Last Taken 06/16/18] Levothyroxine [Synthroid 50 mcg (*)] 50 mcg PO DAILY06 06/16/18 [Last Taken 09/29] Tamsulosin HCl [Flomax 0.4 MG (*)] 0.4 mg PO BID 06/16/18 [Last Taken 06/16/18 09:00] Timolol 0.5% [TIMOPTIC 0.5% (*)] 1 drops EACHEYE DAILY 06/17/18 [Last Taken 09/29] - NPO status NPO Status: no food or drink >8 hours NPO Since - Liquids (Date): 06/19/18 NPO Since - Liquids (Time): 00:00 NPO Since - Solids (Date): 06/19/18 NPO Since - Solids (Time): 00:00 - Anes Hx Anes Hx: no prior problems - Smoking Hx Smoking Status: Former smoker - Alcohol Use Alcohol Use: Sober ANE Labs/Vital Signs - Labs Result Diagrams: 06/19/18 03:46 06/19/18 03:46 - Vital Signs Blood Pressure: 136/77 Heart Rate: 79 Respiratory Rate: 21 O2 Sat (%): 92 Height: 5 ft 8 in Weight: 73.2 kg ANE Physical Exam - Airway Neck exam: FROM Mallampati Score: Class 2 Mouth exam: normal dental/mouth exam - Pulmonary Pulmonary: no respiratory distress - Cardiovascular Cardiovascular: regular rate and rhythym - ASA Status ASA Status: III ANE Anesthesia Plan Anesthesia Plan: general endotracheal anesthesia Lines/Monitors: arterial line, central line, SHERI
[2018-06-19] MEDS ORDERED: MIDAZOLAM 2 MG/2 ML VIAL IVP ONE (07:03)
[2018-06-19] MEDS ORDERED: MIDAZOLAM 2 MG/2 ML VIAL ONE (07:04)
[2018-06-19] MEDS ORDERED: REMIFENTANIL HCL 1 MG VIAL ONE (07:11)
[2018-06-19] MEDS ORDERED: PROPOFOL/EMULSION 500 MG/50 ML BOTTLE IV ONE (07:11)
[2018-06-19] MEDS ORDERED: fentaNYL 100 MCG/2 ML INJ ONE (07:11)
[2018-06-19] MEDS ORDERED: DEXAMETHASONE 4 MG/ML VIAL ONE (07:13)
[2018-06-19] MEDS ORDERED: ROCURONIUM 100 MG/10 ML VIAL ONE (07:13)
[2018-06-19] MEDS ORDERED: DEXMEDETOMIDINE HCL 400 MCG in NS 100 ML IV SCH (07:30)
[2018-06-19] MEDS ORDERED: ONDANSETRON 4 MG/2 ML VIAL ONE (08:39)
[2018-06-19] MEDS ORDERED: SUGAMMADEX SODIUM 200 MG/2 ML VIAL IVP ONE (08:39)
[2018-06-19] MEDS ORDERED: ONDANSETRON 4 MG/2 ML VIAL IVP PRN (10:22)
[2018-06-19] MEDS ORDERED: PANTOPRAZOLE SODIUM 40 MG VIAL IVP ONE ×2 (10:22→14:00)
[2018-06-19] MEDS ORDERED: MEPERIDINE 25 MG/0.5 ML AMP IVP PRN (10:22)
[2018-06-19] MEDS ORDERED: CEPACOL LOZENGE PO PRN (10:22)
[2018-06-19] MEDS ORDERED: ONDANSETRON DISINTEGRATING 4 MG TAB PO PRN (10:22)
[2018-06-19] MEDS ORDERED: ACETAMINOPHEN 325 MG TAB PO PRN (10:22)
[2018-06-19] MEDS ORDERED: D50W 25 GM/50 ML SYR IVP PRN (10:22)
[2018-06-19] MEDS ORDERED: LACTULOSE 20 GM/30 ML UDCUP PO PRN (10:22)
[2018-06-19] MEDS ORDERED: POLYETHYLENE GLYCOL 3350 17 GM PKT PO PRN (10:22)
[2018-06-19] MEDS ORDERED: METOCLOPRAMIDE 10 MG/2 ML VIAL IVP PRN (10:22)
[2018-06-19] MEDS ORDERED: MAGNESIUM HYDROXIDE 30 ML UDCUP PO PRN (10:22)
[2018-06-19] MEDS ORDERED: BISACODYL 10 MG SUPP PR PRN (10:22)
[2018-06-19] MEDS ORDERED: POTASSIUM Cl (KCl) 50 ML IV PRN (10:22)
[2018-06-19] MEDS ORDERED: ACETAMINOPHEN 650 MG SUPP PR PRN (10:22)
[2018-06-19] MEDS ORDERED: SODIUM CL NASAL 45 ML BTL EACHNARE PRN (10:22)
[2018-06-19] MEDS ORDERED: INSULIN REGULAR HUMAN 100 UNIT in NS 100 ML IV SCH (10:30)
[2018-06-19] MEDS ORDERED: NS 1,000 ML IV SCH (10:30)
[2018-06-19] MEDS: fentaNYL 100 MCG/2 ML INJ IVP PRN ×2 (11:23→17:10)
[2018-06-19] MEDS: CITALOPRAM 20 MG TAB PO SCH (11:28)
[2018-06-19] MEDS: TAMSULOSIN HCL 0.4 MG CAP PO SCH ×2 (11:28→21:31)
[2018-06-19] MEDS: TIMOLOL 0.5% 15 ML OPHT.BTL EACHEYE SCH (11:29)
--- NOTE | 2018-06-19 12:11 | GOP ---
DATE OF OPERATION: 06/19/2018 SURGEON: Umang Grigsby DO [employer] PROFESSOR: MOHAN Manzanares ANESTHESIOLOGIST: Jaycee Araya MD PREOPERATIVE DIAGNOSIS: Critical aortic stenosis with syncope. POSTOPERATIVE DIAGNOSIS: Critical aortic stenosis with syncope. PROCEDURE PERFORMED: 1. Minimally invasive aortic valve replacement with #23 Inspiris aortic aortic valve. 2. Atrial clip the left atrial appendage. FINDINGS: Patient had syncope and was found to have critical aortic stenosis, coronaries were normal . He was referred for surgical intervention. DESCRIPTION OF PROCEDURE: He was consented, brought to the operating room, intubated, monitoring tyra es were placed. He was prepped and draped in sterile classical manner. A partial sternotomy was per formed. A retractor was placed. The patient was cannulated in standard fashion. Cardiopulmonary by pass was begun. Cardioplegic arrest was obtained with del Nido solution. Aortotomy was performed. A trileaflet heavily calcified valve was excised. The anulus was debrided. CO2 was infused. LV tomasz mber was irrigated. He was sized for a 23 Inspiris valve with interrupted 2-0 Tycron pledgeted mattr ess sutures utilizing cor knots. Aortotomy was closed in a 2-layer fashion. We also placed a 35 mm atrial clip across the base of the left atrial appendage. Cross-clamp was removed with suction on th e ascending aortic vent in Trendelenburg, when no further air was identified, he was easily weaned fr om bypass. The heparin was reversed with protamine. Echo revealed no perivalvular leak with excelle nt outflow dynamics. A single drain was placed as were 2 ventricular pacing wires. Sternum was clos ed, as was the skin in the standard fashion. Patient was extubated in the OR and returned to ICU in stable condition. /[id number]/MODL
[2018-06-19] MEDS: ALBUMIN 5% 250 ML IV PRN ×2 (12:35→15:15)
[2018-06-19] MEDS: KETOROLAC 15 MG/1 ML SDV IVP SCH ×3 (12:41→23:23)
--- NOTE | 2018-06-19 13:49 | HOSPPROG ---
Hospitalist Progress Note Assessment/Plan: 72 yo M w syncope 2/2 critical . s/p AV replacement on 06/19 Critical Aortic stenosis s/p replacement on 06/19 -Post op care per surgery -examined after procedure, currently stable, sedated, vented -Cardiac Cath unremarkable syncope: due to elevated troponin: likely demand cath prior to surgery unremarkable Hypothyroid: on Levo. Restart once taking PO DVT proph: Heparin Plan: Keep in ICU Vent mgmt, wean off if able to BP ok currently post op care Subjective: had valvular surgery today Objective: Vital Signs Temp Pulse Resp BP Pulse Ox 35.7 C L 77 12 101/54 L 99 06/19/18 11:15 06/19/18 13:00 06/19/18 13:00 06/19/18 13:00 06/19/18 13:00 Laboratory Results 06/19/18 03:46 06/19/18 03:46 06/18/18 06/19/18 06/20/18 05:59 05:59 05:59 Intake Total 620 790 Output Total 360 455 Balance 260 790 -455 - Physical Exam Constitutional: no apparent distress Eyes: PERRL, EOMI Ears, Nose, Mouth, Throat: moist mucous membranes, hearing normal Cardiovascular: regular rate and rhythym, No edema Respiratory: no respiratory distress, other (vented) Gastrointestinal: normoactive bowel sounds, soft, non-tender abdomen Skin: warm Psychiatric: other (sedated) Lymph, Heme, Immunologic: No petechiae ICD10 Worksheet Patient Problems: Problems Problem Status Onset Abrasion of face Acute Acute blood loss anemia Acute Contusion of right knee Acute S/P AVR Acute S/P left atrial appendage ligation Acute Subconjunctival hemorrhage of right eye Acute Syncope Acute
[2018-06-19] MEDS: ceFAZolin 2 GM/DEXTROSE 100 ML IV SCH ×2 (13:59→21:31)
[2018-06-19] MEDS ORDERED: ALBUMIN 5% 250 ML IV ONE ×2 (16:30)
--- NOTE | 2018-06-19 18:13 | PDCONSULT ---
Cell Phone Repair Technician Note: Consult I was asked by Dr. Grigsby of cardiothoracic surgery to evaluate this patient for post surgical ICU care ASSESSMENT 72-year-old male with critical aortic stenosis status post AVR and MARLEN postop day 0 # critical aortic stenosis # hypothyroidism # obesity # BPH # depression # postoperative respiratory failure, expected # encephalopathy, postoperative expected PLAN # wean to extubate # maintain bed semi recumbent # clinically patient has sleep apnea have significant desaturations overnight may consider CPAP # pressors weaned off, monitor hemodynamics # restart Synthroid, tamsulosin and Lexapro when tolerating orals # Feeding - advance as tolerated # Analgesia APAP, fentanyl # Sedation none # Thromboprophylaxis - SQ hep # Head of bed elevated # Ulcer prophylaxis - H2 amena # Glucose SSI # Skin no skin breakdown # Delirium - delirium precautions Chief complaint Syncope HPI 72-year-old male with hypothyroidism and depression presents to the emergency part after a syncopal event while walking his dog. He remembers and strange smell and subsequently lost consciousness and subsequently woke up on the ground was helped inside by bystanders. This subsequently EMS was called and he was brought to the emergency department. He denies prior syncope, chest pain , fevers or chills, nausea vomiting, new leg swelling. He was noted to have facial lacerations but CT head was negative for intracranial pathology and ECG demonstrated bifascicular block Allergies Raw onions Medications Synthroid, Lexapro, tamsulosin Past medical history Hypothyroidism, obesity, depression Social history Former smoker, lives in [facility], denies illicits Family history Coronary disease Review of systems A comprehensive review systems was able and able to be obtained secondary to patient's postoperative encephalopathy Vitals Blood pressure 105/47 map 66, heart rate 84, respiratory rate 19 98% 1 L nasal cannula CVP 10 normal sinus rhythm GEN: Somnolent, snoring in bed NEURO: Nonfocal, response to loud and, does not respond to request for speech HEENT: PERRL, EOMI, MMM, OP clear, CVC catheter and neck NECK: supple, trachea midline CHEST normal shape, no pes excavatum, surgical incision site clean dry and intact CVS: Systolic rub no no murmur PULM: CTA B, no wheezes/rales/rhonchi ABD: soft, NT, ND, NABS EXT: no swelling, no cyanosis, full ROM SKIN: warm, dry, intact, no rash PSYCH CAM negative, appropriate affect Labs reviewed Hemoglobin 11, platelets 90, bicarb 27 Imaging I reviewed interpreted patient's radiographic images well as formal radiology reads 06/19/2018 chest x-ray right IJ CVC in place ET tube placed at level of clavicles , mildly increased interstitial markings sternotomy wires in place, mediastinal drain in place
[2018-06-19] MEDS: HYDROCODONE/APAP 5/325 TAB PO PRN ×3 (18:38→23:21)
[2018-06-20] MEDS ORDERED: ALBUMIN 5% 250 ML BOTTLE IV ONE (01:58)
[2018-06-20] MEDS ORDERED: ALBUMIN 5% 250 ML IV ONE (02:30)
[2018-06-20] MEDS: LEVOTHYROXINE 50 MCG TAB PO SCH (04:53)
[2018-06-20] MEDS: HYDROCODONE/APAP 5/325 TAB PO PRN ×2 (04:53→10:50)
[2018-06-20] MEDS: ceFAZolin 2 GM/DEXTROSE 100 ML IV SCH ×3 (05:06→22:29)
[2018-06-20 05:25] LABS: PLATELET COUNT 69 10^3/uL (150-400)
[2018-06-20] MEDS ORDERED: HEPARIN 5,000 UNIT/0.5 ML INJ SC SCH (06:00)
--- NOTE | 2018-06-20 06:16 | SOAPPROG ---
SOAP Progress Note Assessment/Plan: POD #1: minimally invasive AVR with #23 Inspsandys Res[place] bioprosthetic aortic valve, AtriClip exclusion MARLEN Critical with syncope s/p AVR - CTs to bulb suction, AL/FC out - BB when better BP, ASA for thromboprophylaxis - Transfer to PCU Chronic thrombocytopenia - Coumadin as per Dr. Grigsby, INR goal 2-3, duration 3 months Acute blood loss anemia - Stable with the need for blood products DVT prophylaxis - SCDs only Subjective: Denies pain/SOB. Objective: Vital Signs Temp Pulse Resp BP Pulse Ox 36.7 C 82 24 H 96/55 L 97 06/20/18 05:00 06/20/18 05:00 06/20/18 05:00 06/20/18 05:00 06/20/18 05:00 Laboratory Results 06/20/18 04:50 06/20/18 04:50 06/19/18 06/20/18 06/21/18 05:59 05:59 05:59 Intake Total 790 1535 Output Total 1305 Balance 790 230 Physical Exam - Physical Exam General Appearance: WD/WN, alert, no apparent distress EENT: No scleral icterus (R), No scleral icterus (L) Neck: normal inspection Respiratory: No respiratory distress Cardiac/Chest: regular rate, rhythm Abdomen: non-tender, soft, No distended Skin: normal color, warm/dry Extremities: No pedal edema Neuro/Psych: no motor/sensory deficits, alert, normal mood/affect, oriented x 3 ICD10 Worksheet Patient Problems: Problems Problem Status Onset Abrasion of face Acute Acute blood loss anemia Acute Contusion of right knee Acute S/P AVR Acute S/P left atrial appendage ligation Acute Subconjunctival hemorrhage of right eye Acute Syncope Acute
[2018-06-20] MEDS: KETOROLAC 15 MG/1 ML SDV IVP SCH ×4 (06:22→23:02)
[2018-06-20] MEDS ORDERED: NS 1,000 ML IV SCH (08:00)
[2018-06-20] MEDS: TAMSULOSIN HCL 0.4 MG CAP PO SCH ×2 (09:50→20:22)
[2018-06-20] MEDS: CITALOPRAM 20 MG TAB PO SCH (09:50)
[2018-06-20] MEDS: MUPIROCIN 2% 22 GM OINT NS SCH ×2 (09:50→20:26)
[2018-06-20] MEDS: TIMOLOL 0.5% 15 ML OPHT.BTL EACHEYE SCH (09:51)
[2018-06-20] MEDS ORDERED: ASPIRIN 81 MG CHEWABLE TAB TUBE PRN (10:22)
--- NOTE | 2018-06-20 10:24 | CPEKG ---
Test Reason : OPEN Blood Pressure : / mmHG Vent. Rate : 074 BPM Atrial Rate : 074 BPM P-R Int : 186 ms QRS Dur : 118 ms QT Int : 455 ms P-R-T Axes : 075 110 045 degrees QTc Int : 505 ms Sinus rhythm Incomplete right bundle branch block Inferior infarct, old Confirmed by Vince Louie ([id number]) on 06/20/2018 10:23:59 AM Referred By: Confirmed By:Vince Louie
[2018-06-20] MEDS: PANTOPRAZOLE SODIUM 40 MG TAB PO SCH (10:51)
[2018-06-20] MEDS: ASPIRIN 81 MG CHEWABLE TAB PO SCH (10:51)
[2018-06-20 11:32] LABS: INR 1.29 (0.83-1.16); PROTIME(PATIENT) 16.3 SEC (12.0-15.0)
--- NOTE | 2018-06-20 12:39 | HOSPPROG ---
Hospitalist Progress Note Assessment/Plan: 72 yo M w syncope 2/2 critical . s/p AV replacement on 06/19 Critical Aortic stenosis s/p replacement on 06/19 -Post op care per surgery syncope: due to elevated troponin: likely demand cath prior to surgery unremarkable Hypothyroid: on Levothyroxine Thrombocytopenia, etiology unclear, monitoring Hypotension Mild Acute Metabolic Encephalopathy Generalized Weakness DVT proph: Heparin Plan: Out of the ICU, now in PCU post op care per surgery cont IVF, monitor BP Warfarin per surgery monitor platelets closely monitor cognition, expect improvement PT/OT Subjective: no cp or sob. bp is soft, but he feels good. Mildly confused Objective: Vital Signs Temp Pulse Resp BP Pulse Ox 36.9 C 80 17 84/40 L 94 06/20/18 11:48 06/20/18 11:48 06/20/18 11:48 06/20/18 11:48 06/20/18 11:48 Laboratory Results 06/20/18 04:50 06/20/18 11:00 06/19/18 06/20/18 06/21/18 05:59 05:59 05:59 Intake Total 790 2638 750 Output Total 1305 110 Balance 790 1333 640 PT 16.3 SEC (12.0-15.0) H 06/20/18 11:00 INR 1.29 (0.83-1.16) H 06/20/18 11:00 - Physical Exam Constitutional: no apparent distress, chronically ill appearing Eyes: PERRL Ears, Nose, Mouth, Throat: moist mucous membranes, hearing normal Cardiovascular: regular rate and rhythym Respiratory: no respiratory distress, no rales or rhonchi Gastrointestinal: normoactive bowel sounds, soft, non-tender abdomen Skin: warm Musculoskeletal: generalized weakness Neurologic: No AAOx3 Psychiatric: encephalopathic Lymph, Heme, Immunologic: No petechiae ICD10 Worksheet Patient Problems: Problems Problem Status Onset Abrasion of face Acute Acute blood loss anemia Acute Contusion of right knee Acute S/P AVR Acute S/P left atrial appendage ligation Acute Subconjunctival hemorrhage of right eye Acute Syncope Acute
[2018-06-20] MEDS ORDERED: ALBUMIN 5% 500 ML IV ONE (12:48)
[2018-06-20] MEDS ORDERED: WARFARIN SODIUM 5 MG TAB PO ONE (16:00)
[2018-06-20] MEDS: NS 1,000 ML IV SCH ×2 (17:32→23:08)
[2018-06-20] MEDS: SENNOSIDES/DOCUSATE SODIUM TAB PO SCH (20:22)
[2018-06-21] MEDS: KETOROLAC 15 MG/1 ML SDV IVP SCH ×3 (06:15→18:50)
[2018-06-21] MEDS: NS 1,000 ML IV SCH (06:16)
[2018-06-21] MEDS: LEVOTHYROXINE 50 MCG TAB PO SCH (06:16)
[2018-06-21 07:12] LABS: INR 1.55 (0.83-1.16); PROTIME(PATIENT) 18.7 SEC (12.0-15.0)
[2018-06-21 07:24] LABS: PLATELET COUNT 60 10^3/uL (150-400)
--- NOTE | 2018-06-21 09:12 | ASMTCMCOM ---
CM Note CM Note Notes: Pt post op open heart surgery. Pt recommends outpatient treatment and OT recommends SNF at this time. CM to continue to follow as pt continues to progress medically. Plan: Home with outpatient services Date Signed: 06/21/2018 09:12 AM Electronically Signed By:SUSANNAH Leblanc
[2018-06-21] MEDS: TIMOLOL 0.5% 15 ML OPHT.BTL EACHEYE SCH (10:39)
[2018-06-21] MEDS: SENNOSIDES/DOCUSATE SODIUM TAB PO SCH ×2 (10:39→20:31)
[2018-06-21] MEDS: PANTOPRAZOLE SODIUM 40 MG TAB PO SCH (10:39)
[2018-06-21] MEDS: TAMSULOSIN HCL 0.4 MG CAP PO SCH ×2 (10:40→20:31)
[2018-06-21] MEDS: MUPIROCIN 2% 22 GM OINT NS SCH (10:41)
[2018-06-21] MEDS: CITALOPRAM 20 MG TAB PO SCH (10:41)
[2018-06-21] MEDS: ASPIRIN 81 MG CHEWABLE TAB PO SCH (10:41)
[2018-06-21] MEDS: HYDROCODONE/APAP 5/325 TAB PO PRN (12:59)
--- NOTE | 2018-06-21 15:03 | SOAPPROG ---
RAFAEL Progress Note Assessment/Plan: POD #2: Minimally invasive AVR with #23 Inspsandys [place] bioprosthetic aortic valve, AtriClip exclusion MARLEN Critical with syncope s/p AVR - On ASA for thromboprophylaxis - Will remove chest tubes today. - Will cut pacing wires at the skin. - BB when appropriate Acute blood loss anemia - H&H 9.9/30.2 - Stable with the need for blood products Acute on chronic thrombocytopenia - Plt count 60k (69k). - Will check HIT. - Coumadin as per Dr. Grigsby, INR goal 2-3, duration 3 months. - Patient should have Hematology evaluation as outpatient. - INR 1.5. Coumadin 5mg today. Leukocytosis - Improving with WBC 10.3. - Patient afebrile without overt evidence of infection. - Will follow. BPH - No issues - On Flomax Hypothyroidism - On Synthroid DVT prophylaxis - SCDs only Deconditioning s/p surgery - Continue PT/OT - Encourage ambulation/IS Subjective: Patient without complaints. Reports good pain control. Objective: Vital Signs Temp Pulse Resp BP Pulse Ox 37.2 C 88 18 103/61 95 06/21/18 12:00 06/21/18 13:35 06/21/18 12:00 06/21/18 13:35 06/21/18 13:35 Laboratory Results 06/21/18 06:09 06/21/18 06:09 06/20/18 06/21/18 06/22/18 05:59 05:59 05:59 Intake Total 2638 5174 360 Output Total 1305 1065 75 Balance 1333 4109 285 PT 18.7 SEC (12.0-15.0) H 06/21/18 06:09 INR 1.55 (0.83-1.16) H 06/21/18 06:09 Physical Exam - Physical Exam General Appearance: WD/WN, alert, no apparent distress Neck: supple Respiratory: lungs clear, normal breath sounds, other (No wheezing, rhonchi, rales. ) Cardiac/Chest: regular rate, rhythm, other (No murmurs, rubs, gallops. Sternum stable. Sternotomy c/d/i. ) Abdomen: normal bowel sounds, non-tender, soft Skin: normal color, warm/dry Extremities: other (Warm, no edema) Neuro/Psych: alert, normal mood/affect, oriented x 3 ICD10 Worksheet Patient Problems: Problems Problem Status Onset Abrasion of face Acute Acute blood loss anemia Acute Contusion of right knee Acute S/P AVR Acute S/P left atrial appendage ligation Acute Subconjunctival hemorrhage of right eye Acute Syncope Acute
[2018-06-21] MEDS ORDERED: WARFARIN SODIUM 5 MG TAB PO ONE ×2 (16:00→19:00)
--- NOTE | 2018-06-21 17:02 | HOSPPROG ---
Hospitalist Progress Note Assessment/Plan: 72 yo M w syncope 2/2 critical . s/p AV replacement on 06/19 Critical Aortic stenosis s/p replacement on 06/19 -Post op care per surgery syncope: due to elevated troponin: likely demand cath prior to surgery unremarkable Hypothyroid: on Levothyroxine Thrombocytopenia: -Acute on chronic -decreasing daily -HIT panel today Hypotension: persistent Mild Acute Metabolic Encephalopathy: resolved Generalized Weakness DVT proph: Heparin Plan: post op care per surgery cont IVF, monitor BP. Would consider a PRBC transfusion given the pts drop in Hgb and persistent soft BP. Will await Surgery reccs Warfarin per surgery monitor platelets closely. HIT panel pending PT/OT Subjective: no cp or sob. afebrile. BP is soft Objective: Vital Signs Temp Pulse Resp BP Pulse Ox 37.1 C 82 18 90/50 L 95 06/21/18 16:00 06/21/18 16:00 06/21/18 16:00 06/21/18 16:00 06/21/18 16:00 Laboratory Results 06/21/18 06:09 06/21/18 06:09 06/20/18 06/21/18 06/22/18 05:59 05:59 05:59 Intake Total 2638 5174 1547 Output Total 1305 1065 475 Balance 1333 4109 1072 PT 18.7 SEC (12.0-15.0) H 06/21/18 06:09 INR 1.55 (0.83-1.16) H 06/21/18 06:09 - Physical Exam Constitutional: no apparent distress Eyes: PERRL Ears, Nose, Mouth, Throat: moist mucous membranes, hearing normal, ears appear normal Cardiovascular: regular rate and rhythym, No edema Respiratory: no respiratory distress, no rales or rhonchi, clear to auscultation Gastrointestinal: normoactive bowel sounds, soft, non-tender abdomen Skin: warm Musculoskeletal: generalized weakness Neurologic: AAOx3 Psychiatric: interacting appropriately, not anxious, not encephalopathic ICD10 Worksheet Patient Problems: Problems Problem Status Onset Abrasion of face Acute Acute blood loss anemia Acute Contusion of right knee Acute S/P AVR Acute S/P left atrial appendage ligation Acute Subconjunctival hemorrhage of right eye Acute Syncope Acute
[2018-06-22] MEDS: KETOROLAC 15 MG/1 ML SDV IVP SCH ×2 (00:18→05:37)
[2018-06-22 04:28] LABS: INR 1.6 (0.83-1.16); PROTIME(PATIENT) 19.2 SEC (12.0-15.0)
[2018-06-22] MEDS: LEVOTHYROXINE 50 MCG TAB PO SCH (05:37)
[2018-06-22] MEDS: TAMSULOSIN HCL 0.4 MG CAP PO SCH ×2 (09:54→20:16)
[2018-06-22] MEDS: PANTOPRAZOLE SODIUM 40 MG TAB PO SCH (09:54)
[2018-06-22] MEDS: CITALOPRAM 20 MG TAB PO SCH (09:54)
[2018-06-22] MEDS: ASPIRIN 81 MG CHEWABLE TAB PO SCH (09:54)
[2018-06-22] MEDS: SENNOSIDES/DOCUSATE SODIUM TAB PO SCH ×2 (09:54→20:16)
[2018-06-22] MEDS: TIMOLOL 0.5% 15 ML OPHT.BTL EACHEYE SCH (09:59)
--- NOTE | 2018-06-22 12:36 | SOAPPROG ---
RAFAEL Progress Note Assessment/Plan: POD #3: Minimally invasive AVR with #23 Inspsandys [place] bioprosthetic aortic valve, AtriClip exclusion MARLEN Critical with syncope s/p AVR - On ASA for thromboprophylaxis - Chest tubes and pacing wires out. - BB when appropriate Acute blood loss anemia - H&H 9.5/28.4 - Stable without the need for blood products postop Acute on chronic thrombocytopenia - Plt count 74k (60k) - HIT pending - Coumadin as per Dr. Grigsby, INR goal 2-3, duration 3 months. - Patient should have Hematology evaluation as outpatient. - INR 1.6. Coumadin 5mg today. Postop hypervolemia - Patient net +570mls/24hrs and 9kg(?) up from preop weight - Will start Lasix 40mg po daily. BPH - No issues - On Flomax Hypothyroidism - On Synthroid DVT prophylaxis - SCDs only Deconditioning s/p surgery - Continue PT/OT - Encourage ambulation/IS Disposition - Patient to be evaluated for SNF Subjective: "I slept well last night." Patient reports good pain control. Objective: Vital Signs Temp Pulse Resp BP Pulse Ox 36.7 C 83 14 104/57 L 94 06/22/18 12:00 06/22/18 12:00 06/22/18 12:00 06/22/18 12:00 06/22/18 12:00 Laboratory Results 06/22/18 03:50 06/22/18 03:50 06/21/18 06/22/18 06/23/18 05:59 05:59 05:59 Intake Total 5174 1747 Output Total 1065 1177 350 Balance 4109 570 -350 PT 19.2 SEC (12.0-15.0) H 06/22/18 03:50 INR 1.60 (0.83-1.16) H 06/22/18 03:50 Physical Exam - Physical Exam General Appearance: WD/WN, alert, no apparent distress Neck: supple Respiratory: lungs clear, decreased breath sounds (bases) Cardiac/Chest: regular rate, rhythm, other (no murmurs, rubs, gallops. sternum stable. sternotomy c/d/i. ) Abdomen: normal bowel sounds, non-tender, soft Skin: normal color, warm/dry Extremities: other (warm, minimal lower extremity edema. ) Neuro/Psych: no motor/sensory deficits, alert ICD10 Worksheet Patient Problems: Problems Problem Status Onset Abrasion of face Acute Acute blood loss anemia Acute Contusion of right knee Acute S/P AVR Acute S/P left atrial appendage ligation Acute Subconjunctival hemorrhage of right eye Acute Syncope Acute
--- NOTE | 2018-06-22 13:49 | ASMTCMCOM ---
CM Note CM Note Notes: Chart reviewed. Discussed with RN, Patient requiring more assistance with ADl's. 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 Per [facility] SNF referral appropriate. Referrals in allscripts. Will speak to Sakshi the patient's . CM to follow. Plan: Likely to SNF Date Signed: 06/22/2018 01:29 PM Electronically Signed By:Alma Huerta RN
[2018-06-22] MEDS: POTASSIUM CL 20 MEQ TAB PO SCH (14:54)
[2018-06-22] MEDS: FUROSEMIDE 40 MG TAB PO SCH (14:54)
--- NOTE | 2018-06-22 15:30 | HOSPPROG ---
Hospitalist Progress Note Assessment/Plan: * Critical s/p AVR (tissue) -warfarin for 3 months * Elevated troponin - demand due to severe valvular disease -cardiac cath negative * Metabolic encephalopathy -improving * Acute on chronic diastolic CHF -lasix * Acute respiratory failure - now stable on 4L -suspect combination splinting due to sternal pain + CHF * Thrombocytopenia -likely consumptive -rule out HIT * CKD - at baseline creatinine * Acute blood loss anemia -stable Subjective: Very uncomfortable, lots of pain "everywhere", grabbing heart pillow tightly Objective: Vital Signs Temp Pulse Resp BP Pulse Ox 36.7 C 83 14 104/57 L 94 06/22/18 12:00 06/22/18 12:00 06/22/18 12:00 06/22/18 12:00 06/22/18 12:00 Laboratory Results 06/22/18 03:50 06/22/18 03:50 06/21/18 06/22/18 06/23/18 05:59 05:59 05:59 Intake Total 5174 1747 Output Total 1065 1177 350 Balance 4109 570 -350 PT 19.2 SEC (12.0-15.0) H 06/22/18 03:50 INR 1.60 (0.83-1.16) H 06/22/18 03:50 CXR viewed, my personal interpretation is - CHF ECHO - critical cath report reviewed - no CAD - Physical Exam Constitutional: uncomfortable, No no apparent distress, No not in pain Cardiovascular: regular rate and rhythym, no murmur, rub, or gallop Respiratory: no respiratory distress, no rales or rhonchi, clear to auscultation , respiratory distress, other (shallow inspiration) Skin: no rashes or abrasions, no fluctuance, no induration Neurologic: AAOx3, sensation intact bilaterally Psychiatric: interacting appropriately, not encephalopathic, thought process linear, anxious ICD10 Worksheet Patient Problems: Problems Problem Status Onset Acute blood loss anemia Acute S/P left atrial appendage ligation Acute S/P AVR Acute Syncope Acute Abrasion of face Acute Contusion of right knee Acute Subconjunctival hemorrhage of right eye Acute
[2018-06-22] MEDS ORDERED: WARFARIN SODIUM 5 MG TAB PO ONE (16:00)
[2018-06-22] MEDS: traMADol 50 MG TAB PO PRN (16:19)
[2018-06-23] MEDS: traMADol 50 MG TAB PO PRN (01:06)
[2018-06-23 04:44] LABS: INR 1.85 (0.83-1.16); PROTIME(PATIENT) 21.4 SEC (12.0-15.0)
--- NOTE | 2018-06-23 07:01 | SOAPPROG ---
SOAP Progress Note Assessment/Plan: POD #4: minimally invasive AVR with #23 Inspsandys Resilia bioprosthetic aortic valve, AtriClip exclusion MARLEN Critical with syncope s/p AVR - BB when better BP, ASA for thromboprophylaxis - Post-op ECHO today Chronic thrombocytopenia - Platelets rebounding - Coumadin as per Dr. Grigsby, INR goal 2-3, duration 3 months Acute blood loss anemia - Stable without the need for blood products DVT prophylaxis - SCDs only Disposition - SNF today or Saturday Subjective: Sleeping soundly. Objective: Vital Signs Temp Pulse Resp BP Pulse Ox 36.7 C 63 16 105/66 93 06/23/18 04:00 06/23/18 04:00 06/23/18 04:00 06/23/18 04:00 06/23/18 04:00 Laboratory Results 06/23/18 03:14 06/23/18 03:14 06/22/18 06/23/18 06/24/18 05:59 05:59 05:59 Intake Total 1747 1200 Output Total 1177 2950 Balance 570 -1750 PT 21.4 SEC (12.0-15.0) H 06/23/18 03:14 INR 1.85 (0.83-1.16) H 06/23/18 03:14 Physical Exam - Physical Exam General Appearance: WD/WN, alert, no apparent distress EENT: scleral icterus (R) Neck: normal inspection Respiratory: No respiratory distress Cardiac/Chest: regular rate, rhythm Abdomen: No distended Skin: normal color, warm/dry Extremities: No pedal edema Neuro/Psych: other (sleeping) ICD10 Worksheet Patient Problems: Problems Problem Status Onset Abrasion of face Acute Acute blood loss anemia Acute Contusion of right knee Acute S/P AVR Acute S/P left atrial appendage ligation Acute Subconjunctival hemorrhage of right eye Acute Syncope Acute
[2018-06-23] MEDS: LEVOTHYROXINE 50 MCG TAB PO SCH (09:08)
[2018-06-23] MEDS: FUROSEMIDE 40 MG TAB PO SCH (09:36)
[2018-06-23] MEDS: POTASSIUM CL 20 MEQ TAB PO SCH (09:36)
[2018-06-23] MEDS: ASPIRIN 81 MG CHEWABLE TAB PO SCH (09:36)
[2018-06-23] MEDS: TAMSULOSIN HCL 0.4 MG CAP PO SCH (09:36)
[2018-06-23] MEDS: PANTOPRAZOLE SODIUM 40 MG TAB PO SCH (09:36)
[2018-06-23] MEDS: CITALOPRAM 20 MG TAB PO SCH (09:36)
[2018-06-23] MEDS: SENNOSIDES/DOCUSATE SODIUM TAB PO SCH (09:36)
--- NOTE | 2018-06-23 09:39 | ECHO ---
[email or web address] [address] [address] Main: [phone] Fax: Transthoracic Echocardiogram Name: KRZYSZTOF FAGAN MR#: [id number] Study Date: 06/23/2018 Study Time: 08:19 AM Date of : 1945 Age: 72 year(s) Height: 172.7 cm (68 in.) Weight: 82.1 kg (181 lb.) BSA: 1.96 m2 Gender: Male Examination: Echo Indication: s/P AVR, assess aortic valve, EF Image Quality: Adequate Contrast: Requested by: Grecia Lawrence BP: 110 mmHg/66 mmHg Heart Rate: Rhythm: Indication: s/P AVR, assess aortic valve, EF Procedure Staff Secondary Special Education Teacher: Cassandra Quiroz [facility] Reading Physician: Kingston Husain MD Requesting Provider: Conclusions: Trace pericardial effusion. Normal LV systolic function. Normally functioning aortic valve prosthesis. Tissue Doppler suggest elevated filling pressures. Measurements: Chambers Valvular Assessment AV/MV Valvular Assessment TV/PV Normal Normal Normal Name Value Range Name Value Range Name Value Range Ao Sherry (2D): 2.6 cm (1.4 cm-2.6 AV Vmax: 2.15 m/s (1 m/s-1.7 PV Vmax: 0.84 m/s (0.6 m/s-0.9 cm) m/s) m/s) IVSd (2D): 1.1 cm (0.6 cm-1.1 AV maxP mmHg ( - ) PV PGmax: 3 mmHg ( - ) cm) AV meanP mmHg ( - ) LVDd (2D): 3.9 cm (4.2 cm-5.9 LVOT Vmax: 1.02 m/s (0.7 m/s-1.1 cm) m/s) LVDs (2D): 2.5 cm (2.1 cm-4 RAYNA (Vmax): 1.3 cm2 ( - ) cm) RAYNA (VTI): 1.7 cm ( - ) LVPWd (2D): 1.0 cm (0.6 cm-1 MV E Vmax: 1.16 m/s ( - ) cm) MV A Vmax: 0.82 m/s ( - ) LVOTd 1.9 cm 1.9 cm mm MV E/A: 1.41 ( - ) LVEF (BP): 59 % (>=55 %) MV PHT: 0.071 s ( - ) RVDd(2D): 2.6 cm (1.9 cm-3.8 cmmm) MVA (PHT): 3.1 s ( - ) Continued Measurements: Chambers Valvular Assessment AV/MV Name Value Name Value LADs: 3.1 cm MV DecTime: 239 m/s LADs Lon.8 cm MV E/E' Septal: 22.40 LA Area: 17.1 cm2 MV E/E' Lateral: 20.20 LA Volume: 41 ml Patient: KRZYSZTOF FAGAN Study Date: 06/23/2018 Page 1 of 2 08:19 AM LA Volume Index: 20.9 ml/m2 RA Area: 15.9 cm2 Additional Vessels Name Value Ao Ascendin.6 cm Findings: Left Ventricle: Normal size left ventricle. No LV hypertrophy. Normal global systolic LV function. EF is 59 %. No regional wall motion abnormality. Unable to assess diastolic dysfunction. Right Ventricle: Normal size right ventricle. Normal RV function. Left Atrium: The left atrium is normal in size. Right Atrium: The right atrium is normal in size. Mitral Valve: The mitral valve is normal in appearance and function. Mild mitral valve regurgitation is present. No mitral stenosis is present. Aortic Valve: The aortic valve is a bioprosthesis. Normal functioning aortic valve prosthesis. The prosthetic aortic valve is normal. The orifice motion of the prosthetic aortic valve is normal. No prosthesis regurgitation. #23 Inspiris. Tricuspid Valve: The tricuspid valve is normal in appearance and function. Trivial tricuspid valve regurgitation. Pulmonic Valve: The pulmonic valve is normal in appearance and function. Trivial pulmonic valve regurgitation. Aorta: The aorta is normal. Normal size aortic root measuring 2.6 cm. Normal size ascending aorta measuring 2.6 cm. IVC: Subcostal not well visualized post op. Pericardium: Trivial pericardial effusion. There is a pleural effusion present. (No Signature Object) Patient: KRZYSZTOF FAGAN Study Date: 06/23/2018 Page 2 of 2 08:19 AM [id number]
--- NOTE | 2018-06-23 09:41 | PDIAF ---
- Diagnosis Diagnosis: critical s/p AVR Code Status: Full Code - Medication Management Discharge Medications: electronically signed and located in the Home Medication List. PICC Care - Routine: N/A - Orders Services needed: Registered Nurse, Certified Conversion Developer, Master Visitor Services Assistant , Physical Therapy, Occupational Therapy Isolation Type: None Oxygen: 4L NS, weam for O2 sats >89% Diet Recommendation: cardiac -low fat low salt, fluid restriction (use comment for amount) (2 liters per day) Diet Texture: Regular Texture Diet, Thin Liquids, Meds Whole w/Liquids Weigh Patient: daily Wolff: No Additional Instructions: Discharge Instructions: Call [facility] cardiac rehab to enroll in phase 2 classes if not already arranged. Sternal precautions x 4 weeks. Avoid lifting > 10lbs with an outstretched arm. Avoid push/pull activities. No driving until cleared by surgery. Elevate low legs at rest. Avoid prolonged standing or dangling. Cleanse wounds once daily with soap and water. Avoid immersion (pool, hot tub, bath) until scabs off. Ok to leave all wounds open to air. Avoid creams or ointments until scabs fall off. Log daily vital signs once home: weight, heart rate, blood pressure, and pulse oximetry if on oxygen. Call Doctor kinetic for overnight weight gain > 2lbs, weekly gain > 5lbs or worsening leg swelling. Call [facility] for resting heart rate > 120 OR for systolic blood pressure consistently < 90 or > 140. Target oxygen saturation > 89%. Ok to use [id number] medications for bowel function. Chest x-ray Instructions: Please obtain a chest xray prior to surgical appointment. Chest x-rays dont require an appointment. Come to the Emergency Room entrance at the [facility] location. Sign in at the computer kiosk in the entryway. You will be given a number and may sit in the waiting area until called. You will be registered and directed to the Imaging desk on the 1st floor. This process can take up to an hour. Make sure you allow enough time before your appointment to have your x-ray taken. - Follow Up Care Current Providers and Referrals: Perez Britton MD [Primary Care Provider] - As per Instructions Umang Grigsby DO [Doctor of Osteopathy] - 07/01/18 10:00 am
--- NOTE | 2018-06-23 09:45 | PDDCSUM ---
Discharge Summary Discharge Summary: ADMISSION DATE: 06/17/18 DISCHARGE DATE: 06/23/18 ADMISSION DIAGNOSES 1. Syncope 2. Critical aortic stenosis 3. Thrombocytopenia DISCHARGE DIAGNOSES 1. Syncope 2. Critical aortic stenosis 3. Thrombocytopenia 4. Acute post-op blood loss anemia PROCEDURES 06/19/18, Umang Grigsby: Minimally invasive AVR with #23 Inspiris Resilia bioprosthetic aortic valve, AtriClip exclusion MARLEN HPI 72M with syncopal event found to have critical aortic stenosis. HOSPITAL COURSE BY PROBLEM LIST 1. Syncopal event with critical aortic stenosis - s/p AVR. ASA for thromboprophylaxis. 2. Thrombocytopenia - pre-op range 90-104 and discharged at 108. Plan will be for OP hematology evaluation. Coumadin started as per Dr. Grigsby for thrombocytopenia with INR goal 2-3, duration as per hematology. 3. Acute post-op blood loss anemia - stable without the need for transfusions. CONDITION Good PERTINENT DISCHARGE CLINICAL INFORMATION Vitals: 105/66, 63 SR, 93% on 4L/min NC, +6 kg Exam: S1S2, No resp distress, ND, soft, NTP, LE with +1 edema BL DISPOSITION [facility] ACTIVITY Pt was instructed on sternal precautions, activity limitations, and which problems to call [facility] with. Please see Discharge Plan in chart for specifics. DISCHARGE MEDICATIONS Continue: Celexa, Synthroid, Flomax, Timolol New: Coumadin 5mg daily (INR goal 2-3), Tramadol prn, KCL 20 meq daily, Lasix 40 mg daily, ASA, Tylenol prn Stop n/a PENDING STUDIES/LABS 1. CXR prior to surgical follow-up FOLLOW-UP 1. Umang Grigsby, 07/01/18, 10:00 AM 2. Al Panda, as directed
[2018-06-23] MEDS: TIMOLOL 0.5% 15 ML OPHT.BTL EACHEYE SCH (10:48)
--- NOTE | 2018-06-23 11:41 | POSTANESTH ---
Post Anesthetic Evaluation Cardiovascular Status: Normal, Stable Respiratory Status: Normal, Stable Level of Consciousness/Mental Status: Can Participate in Eval Pain Control: Adequate, Prn Tx Ordered Nausea/Vomiting Control: Adequate, Prn Tx Ordered Complications Possibly Related to Anesthesia: None Noted
--- NOTE | 2018-06-23 12:23 | ASMTLACE ---
BHARAT Length of stay for Answers: 4-6 days current admission Acuity / Level of Answers: Yes Care: Did the patient have an inpatient admission? Comorbidities - select Answers: Other Notes: Hypothyroid all that apply # of Emergency department Answers: 1-2 visits in the last 6 months Social determinants Answers: Mental health diagnosis (anxiety, depression, pers onality disorders, etc.) Score: 12 Date Signed: 06/23/2018 12:23 PM Electronically Signed By:Heather Dominguez RN
--- NOTE | 2018-06-23 12:25 | ASMTDCNOTE ---
Case Management Discharge Discharge Order Complete? Answers: Yes Patient to Obtain Answers: Other Notes: [facility] Transportation Arranged Answers: Other Notes: [facility] Transport will Pick (Date 06/23/2018 02:30 PM & Time) Faxed Final Orders Answers: Yes Family Notified Answers: Yes Discharge Comments Notes: Patient discharged to [facility]. Transport arranged by Pat at facility. BOB Clark to call report. Date Signed: 06/23/2018 12:24 PM Electronically Signed By:Heather Dominguez RN
[2018-06-23 13:39] VITALS: BP 115/58
--- NOTE | 2018-06-23 15:32 | ASDISCHSUM ---
Discharge Information Plan Status:Has needs-TBD Medically Cleared to Leave: Discharge Date:06/23/2018 02:50 PM CM D/C Disposition: ADT D/C Disposition:Group Home Facility Projected Discharge Date:06/23/2018 11:00 AM Transportation at D/C: Discharge Delay Reason: Follow-Up Date:06/23/2018 11:00 AM Discharge Slot: Final Diagnosis: Placement Information Referral Type:*Retirement/SNF Referral ID:[id number] Provider Name:[facility] Address 1:[address] Address 2: City:[place] Selection Factors: State:[place] Patient Contact Information Contact Name:YOSHI Relationship: Address:[address] Work Phone: City:[place] [facility] Phone: State/Zip Code:[place] [address] Email: Financial Information Financial Class:Medicare Advantage Plans Primary Plan Desc:[facility] [employer] Primary Plan Number:[id number] Secondary Plan Desc: Secondary Plan Number: Assessment Information LACE LACE Length of stay for Answers: 4-6 days current admission Acuity / Level of Answers: Yes Care: Did the patient have an inpatient admission? Comorbidities - select Answers: Other Notes: Hypothyroid all that apply # of Emergency department Answers: 1-2 visits in the last 6 months Social determinants Answers: Mental health diagnosis (anxiety, depression, pers onality disorders, etc.) Score: 12 Date Signed: 06/23/2018 12:23 PM Electronically Signed By:Heather Dominguez RN [facility] CM Progress Note CM Note CM Note Notes: Pt found down when walking the dog due to a syncopal event. Pt found to have critical aortic stenosis requiring label stamper procedure today and cardiac surgery consult. Pt lives with Sakshi in [place], and per RN Sakshi is quite shaken by turn of events. Pt nor in room when CM consulted. Discharge needs TBD. CM to follow. D/c Plan: TBD Date Signed: 06/17/2018 03:35 PM Electronically Signed By:Anabella Reza [facility] CM Progress Note CM Note CM Note Notes: 06/18/2018 Case Management Note Discussed w/RN. Pt to have open heart tomorrow. Discharge needs are unclear. Case Management d/c poc: to be determined. Case Management to follow. Date Signed: 06/18/2018 03:27 PM Electronically Signed By:Rivka Light RN [facility] CM Progress Note CM Note CM Note Notes: Pt post op open heart surgery. Pt recommends outpatient treatment and OT recommends SNF at this time. CM to continue to follow as pt continues to progress medically. Plan: Home with outpatient services Date Signed: 06/21/2018 09:12 AM Electronically Signed By:SUSANNAH Leblanc [facility] CM Progress Note CM Note CM Note Notes: Chart reviewed. Discussed with RN, Patient requiring more assistance with ADl's. 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 Per [facility] SNF referral appropriate. Referrals in allscripts. Will speak to Sakshi the patient's . CM to follow. Plan: Likely to SNF Date Signed: 06/22/2018 01:29 PM Electronically Signed By:Alma Huerta RN Case Management Discharge Plan Note Case Management Discharge Discharge Order Complete? Answers: Yes Patient to Obtain Answers: Other Notes: [facility] Transportation Arranged Answers: Other Notes: [facility] Transport will Pick (Date 06/23/2018 02:30 PM & Time) Faxed Final Orders Answers: Yes Family Notified Answers: Yes Discharge Comments Notes: Patient discharged to [facility]. Transport arranged by Pat at facility. BOB Clark to call report. Date Signed: 06/23/2018 12:24 PM Electronically Signed By:Heather Dominguez RN Intervention Information Intervention Type:*IM-Signed Date of Service:06/23/2018 10:33 AM Patient Type:Inpatient Staff Member:[place] Hours: Discipline: Severity: Comment:
[2018-06-23] MEDS ORDERED: WARFARIN SODIUM 5 MG TAB PO SCH (16:00)
[2018-06-23] MEDS ORDERED: WARFARIN SODIUM 5 MG TAB PO ONE (16:00)
--- NOTE | 2018-06-23 16:11 | HOSPPROG ---
Hospitalist Progress Note Assessment/Plan: * Critical s/p AVR (tissue) -warfarin for 3 months * Elevated troponin - demand due to severe valvular disease -cardiac cath negative * Metabolic encephalopathy -improving * Acute on chronic diastolic CHF -lasix * Acute respiratory failure - now stable on 4L -suspect combination splinting due to sternal pain + CHF * Thrombocytopenia -likely consumptive -rule out HIT * CKD - at baseline creatinine * Acute blood loss anemia -stable * Eye trauma with hematoma -recommend outpatient ophthalmology Okay discharge to SNF today per CT surgery Subjective: no new complaints. Objective: Vital Signs Temp Pulse Resp BP Pulse Ox 37.1 C 88 19 115/58 L 94 06/23/18 12:00 06/23/18 12:00 06/23/18 12:00 06/23/18 12:00 06/23/18 12:00 Laboratory Results 06/23/18 03:14 06/23/18 03:14 06/22/18 06/23/18 06/24/18 05:59 05:59 05:59 Intake Total 1747 1200 Output Total 1177 2950 450 Balance 570 -1750 -450 PT 21.4 SEC (12.0-15.0) H 06/23/18 03:14 INR 1.85 (0.83-1.16) H 06/23/18 03:14 - Physical Exam Constitutional: no apparent distress, appears nourished, not in pain Eyes: scleral injection (severe subconjucntival hemorrhage right eye) Cardiovascular: regular rate and rhythym, no murmur, rub, or gallop Respiratory: no respiratory distress, no rales or rhonchi, clear to auscultation Gastrointestinal: normoactive bowel sounds, soft, non-tender abdomen, no palpable masses Skin: no rashes or abrasions, no fluctuance, no induration Neurologic: AAOx3, sensation intact bilaterally Psychiatric: interacting appropriately, not anxious, not encephalopathic, thought process linear ICD10 Worksheet Patient Problems: Problems Problem Status Onset Abrasion of face Acute Acute blood loss anemia Acute Contusion of right knee Acute S/P AVR Acute S/P left atrial appendage ligation Acute Subconjunctival hemorrhage of right eye Acute Syncope Acute
== END 2018-06-23 14:50 | DRG 217 ==
LOC: F2N 23:58 → F2W 06-17 07:30 → OBSVTOIN 06-17 13:34 → F2N 06-19 08:01 → F2W 06-20 10:05
PROVIDERS: ADMIT Student in an Organized Health Care Education/Training Program; ATTEND Thoracic Surgery (Cardiothoracic Vascular Surgery)
DX: I35.0 Nonrheumatic aortic (valve) stenosis (principal); R55 Syncope and collapse; S00.83XA Contusion of other part of head, initial encounter; S80.01XA Contusion of right knee, initial encounter; H11.31 Conjunctival hemorrhage, right eye; W18.39XA Other fall on same level, initial encounter; Y93.K1 Activity, walking an animal; Y92.480 Sidewalk as the place of occurrence of the external cause; Y99.8 Other external cause status; E87.79 Other fluid overload; D62 Acute posthemorrhagic anemia; F05 Delirium due to known physiological condition; D69.6 Thrombocytopenia, unspecified; E03.9 Hypothyroidism, unspecified; N18.3 Chronic kidney disease, stage 3 (moderate); E66.09 Other obesity due to excess calories; Z68.26 Body mass index [BMI] 26.0-26.9, adult; N40.0 Benign prostatic hyperplasia without lower urinary tract symptoms; F41.9 Anxiety disorder, unspecified; Z87.891 Personal history of nicotine dependence
CPT/HCPCS: 82435-PO; 82565-PO; 82947-PO; 83605-PO; 84132-PO; 84295-PO; 84484-PO; 84520-PO; 85014-PO; 86022-90; 97116-GP; 97162-GP; 97166-GO; 97530-GP; 97535-GO; C1760; G0378; G8978-GP-CJ; G8979-GP-CI; G8987-GO-CK; G8988-GO-CI; J0153; J0282; J0690; J1100; J1265; J1644; J1650; J1815; J1885; J2001; J2150; J2250; J2260; J2270; J2370; J2405; J2704; J2720; J2930; J3010; J3475; P9041; Q9967

== ENCOUNTER → 2018-07-01 | Outpatient (CLI) | payer OTHER | LOC: FIMAGING 08:57 | PROVIDERS: ATTEND Thoracic Surgery (Cardiothoracic Vascular Surgery) | DX: I25.10 Atherosclerotic heart disease of native coronary artery without angina pectoris (principal); Z95.1 Presence of aortocoronary bypass graft; J90 Pleural effusion, not elsewhere classified ==

== ENCOUNTER → 2018-09-08 | Outpatient (CLI) | payer OTHER | LOC: FIMAGING 18:50 | PROVIDERS: ATTEND Internal Medicine Geriatric Medicine | DX: R41.3 Other amnesia (principal) ==